=== PATIENT | male | born 2000 | race Caucasian/White ===

== ENCOUNTER 2024-03-03 22:17 | Emergency (ER) | payer SELFPAY ==
--- NOTE | 2024-03-03 22:21 | ED.GENADUL_ITS ---
Discharge Plan Disposition Patient Disposition: Home Condition: Good Discharge Details Clinical Impression: Headache ED Provider: Juanpablo De La Torre Home Meds and New Rx's Prescriptions: No Action No Known Home Meds Discharge Instructions Instructions: Headache, Adult ED Additional Instructions: You were seen in the ED for headache with otherwise reassuring exam and no neurologic changes. You improved with fluids and prochlorperazine with resolution of headache. Laboratory studies reassuring. Recommend increase fluid intake during very hot days like yesterday. Get some rest over the next day or two. Should establish primary care up here if you will be staying. Return to ED for any syncope, neurologic change, confusion, severe worsening headache, other concerns. HPI General Mode of arrival: ambulatory . Date/Time Provider Initiated Documentation: 03/03/24 22:20 . Limitations to Documentation: no limitations . Information obtained by: patient . HPI Narrative: Patient presents to ED with complaint of right-sided throbbing headache, nausea which began this evening. Patient had laid down after dinner and took a nap. [place] fine prior to lying down. Woke up with right-sided throbbing headache with associated nausea and some dizziness. He vomited once at home. He did take 3 [id number] ibuprofen. He reports a prior history of migraines and does describe them as throbbing but usually frontal and not as bad as this one is. 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 Denies any double vision, confusion, speech problems, numbness, weakness. He did notice some fleeting left-sided upper chest pain described as sharp lasting seconds. No associated shortness of breath. Denies any fever or cough. Denies any abdominal pain. Does feel that he likely did not drink enough during this hot day. Has no significant past medical history and is on no medications. Related Data Home Medications ?Medication ?Instructions ?Recorded ?Confirmed Unknown [No Known Home Meds] 03/03/24 03/03/24 Allergies Allergy/AdvReac Type Severity Reaction Status Date / Time No Known Allergies Allergy Unverified 03/03/24 22:27 Review of Systems Narrative: Per HPI Exam Narrative Exam Narrative: Const: WDWN male in NAD. VS per triage. HEENT: NC/AT. Normal facial exam. Eyes: PERRL and EOMI. Neck: Supple. Trachea midline. No meningeal signs. Lungs: Normal respiratory effort. Lungs are clear. Cor: RRR without murmur. Good radial pulses. GI: Soft/ND Neuro: A+O x 3. Normal speech, mentation, gait. Cranial nerves II - XII grossly intact. No gross motor or sensory deficit. Ext: No C/C/E. Medical Decision Making Patient presenting to ED with right-sided throbbing headache with associated nausea and 1 episode of vomiting. Did take ibuprofen at home with some improvem ent in headache. Has had headaches in the past usually frontal and throbbing. Also usually not as painful as this 1. Completely normal neurologic exam. No meningeal signs. Woke up with headache. Does not feel that he drank enough during the day today. Has not used cocaine in over a week. My suspicion for intracranial hemorrhage is very low. Also, reports some fleeting pleuritic type chest pain. No shortness of breath. No persistent pain. Do not feel that this is cardiac in nature no pulmonary and is not mentioned other than during review of system. Do not feel that EKG or chest x-ray necessary. Will proceed with IV access, fluids, prochlorperazine and basic CBC and BMP. 23:35 - Headache has completely resolved as has nausea. He feels normal. Labs with elevated WBC but otherwise no signs/symptoms of infection. He has a very minimal anemia. BMP essentially normal. Comfortable with discharge home at this time with return precautions. Lab Data Lab results reviewed: Yes I reviewed the patient's lab results. Lab results narrative: See [facility] All Active Problems (Updated 03/03/24 @ 23:40 by Juanpablo De La Torre MD) Headache (Acute) Medical History (Updated 03/03/24 @ 23:40 by Juanpablo De La Torre MD) No significant past medical history Surgical History S/P appendectomy Social History Smoking/Tobacco Use Status: Current every day Tobacco Type: cigarettes Smoking risk assessment performed?: Yes Alcohol Intake: never Substance use type: crack/cocaine Details: stated clean for 1 week
[2024-03-03 22:23] VITALS: BP 130/100; PULSE 66; RESP 16; TEMP 36.3; O2SAT 99
[2024-03-03] MEDS: Lactated Ringers 1,000 ML 1000 ML IV (23:04)
[2024-03-03] MEDS: Normal Saline 50 ML 999 ML (23:05)
[2024-03-03] MEDS: Prochlorperazine 10 MG/2 ML VIAL IVP (23:05)
[2024-03-03 23:08] LABS: HCT 39.4 % (40.0-50.0); HGB 13.2 g/dL (13.5-17.5); MCHC 33.5 % (32.0-36.0); MCV 93 fL (80-95); MPV 9.6 fL (8.0-11.0); Platelet Count 272 10^3/uL (130-400); RBC 4.26 10^6/uL (4.36-5.78); RDW 12.7 % (11.8-14.1); RDW-SD 43.1 fL; WBC 16.99 10^3/uL (4.4-10.8)
[2024-03-03 23:18] LABS: Anion Gap 9.9 mmol/L (3-11); BUN 14 mg/dL (7-18); CO2 30.1 mmol/L (21.0-32.0); CREATININE 0.9 mg/dL (0.70-1.30); Calcium 9.5 mg/dL (8.5-10.1); Chloride 101 mmol/L (98-107); Glucose 142 mg/dL (74-106); Potassium 3.6 mmol/L (3.5-5.1); Sodium 141 mmol/L (136-145)
== END 2024-03-03 23:59 | disposition home or self-care (01) ==
LOC: ER 03-04 00:23
PROVIDERS: Emergency Provider Emergency Medicine
DX: R51.9 Headache, unspecified (principal); F17.210 Nicotine dependence, cigarettes, uncomplicated
CPT/HCPCS: 80048; 85027; 96361; 96374; 99284; 99283; J0780